=== PATIENT | male | born 1970 | race Caucasian/White ===

== ENCOUNTER 2023-02-17 11:32 | Emergency (ER) | payer MEDICAID ==
[~2023-02-17] VITALS: Ht 180.3 cm; Wt 90.9 kg
[2023-02-17] MEDS ORDERED: magnesium 4gm in 100ml NS 100 ML IV ONE (12:00)
[2023-02-17] MEDS ORDERED: metoclopramide 5 mg/ml inj IV ONE (12:00)
[2023-02-17 12:03] LABS: BASOPHILS # (AUTO) 0.1 X10'3 (0-0.2); BASOPHILS % (AUTO) 1.3 % (0-1); EOSINOPHILS # (AUTO) 0.1 X10'3 (0-0.9); EOSINOPHILS % (AUTO) 1.6 % (0-6); HEMOGLOBIN 12.1 g/dl (14.0-17.9); LYMPHOCYTES # (AUTO) 1.7 X10'3 (1.1-4.8); LYMPHOCYTES % (AUTO) 39.4 % (21-51); MEAN CORPUSCULAR HEMOGLOBIN 30.3 PG (27.0-31.0); MEAN CORPUSCULAR HGB CONC 32.8 g/dL (33.0-36.5); MEAN CORPUSCULAR VOLUME 92.6 FL (78-98); MEAN PLATELET VOLUME 7.7 FL (7.4-10.4); MONOCYTES # (AUTO) 0.8 X10'3 (0-0.9); MONOCYTES % (AUTO) 18.1 % (2-12); NEUTROPHILS # (AUTO) 1.7 X10'3 (1.8-7.7); NEUTROPHILS % (AUTO) 39.6 % (42-75); PLATELET COUNT 154 X10'3 (140-440); RED CELL DISTRIBUTION WIDTH 19.4 % (11.5-14.5); WHITE BLOOD COUNT 4.4 X10'3 (4.5-11.0)
[2023-02-17] MEDS ORDERED: normal saline 1000ml 1,000 ML IV ONE ×2 (12:10→15:00)
[2023-02-17] MEDS ORDERED: thiamine 100mg/ml 2ml inj. IV ONE (12:15)
[2023-02-17 12:18] LABS: ALANINE AMINOTRANSFERASE 92 U/L (12-78); ALBUMIN 3.4 G/DL (3.4-5.0); ALBUMIN/GLOBULIN RATIO 0.7 (1.1-1.5); ALKALINE PHOSPHATASE 153 IU/L (46-116); ANION GAP 14 (8-16); ASPARTATE AMINO TRANSFERASE 74 U/L (10-37); BILIRUBIN,TOTAL 0.3 MG/DL (0.1-1.0); BLOOD UREA NITROGEN 11 MG/DL (7-18); BUN/CREATININE RATIO 11.2 (10.0-20.0); CALCIUM 8.1 MG/DL (8.5-10.1); CHLORIDE 101 MMOL/L (99-107); CREATININE 0.98 MG/DL (0.60-1.10); GLUCOSE 108 MG/DL (70-104); SODIUM 137 MMOL/L (135-145); TOTAL CARBON DIOXIDE 21.7 MMOL/L (24-32); TOTAL PROTEIN 8.4 G/DL (6.4-8.2); eGFR 81 ML/MIN
[2023-02-17 12:24] LABS: ETHANOL 0.547 GM/DL (0.0-0.010); POTASSIUM 4.7 MMOL/L (3.5-5.1)
[2023-02-17 19:41] LABS: CLARITY,URINE CLEAR (Clear); COLOR,URINE YELLOW (Yellow); GLUCOSE, URINE NEGATIVE (Neg); KETONES,URINE NEGATIVE (Neg); LEUKOCYTE ESTERASE ,URINE NEGATIVE (Neg); NITRITES, URINE NEGATIVE (Neg); OCCULT BLOOD,URINE NEGATIVE (Neg); PH,URINE 5.5 (4.8-8.0); PROTEIN,URINE NEGATIVE (Neg); UROBILINOGEN,URINE 0.2 E.U/dL (0.2-1.0)
[2023-02-17 19:44] LABS: URINE AMPHETAMINE SCREEN NEGATIVE (Neg); URINE BARBITUATE SCREEN NEGATIVE (Neg); URINE BENZODIAZEPINES SCREEN NEGATIVE (Neg); URINE CANNABINOID SCREEN NEGATIVE (Neg); URINE COCAINE SCREEN NEGATIVE (Neg); URINE METHADONE SCREEN NEGATIVE (Neg); URINE OPIATE SCREEN NEGATIVE (Neg); URINE PHENCYCLIDINE SCREEN NEGATIVE (Neg)
[2023-02-17 19:47] LABS: UA COLLECTION TYPE CLN CATCH MIDSTREAM
--- NOTE | 2023-02-17 21:14 | NUR ---
PCT attempted to gait test pt. Pt was too unsteady on his feet to walk. MD notified.
[2023-02-18 06:51] VITALS: BP 139/88
== END 2023-02-18 06:58 | disposition home or self-care (01) ==
LOC: EDBD 11:33 → ER 11:33
DX: F10.129 Alcohol abuse with intoxication, unspecified (principal); Z72.89 Other problems related to lifestyle; Z59.00 Homelessness unspecified; Y90.8 Blood alcohol level of 240 mg/100 ml or more
CPT/HCPCS: 36415; 80053; 80305; 80320; 81003; 85025; 96361; 96365; 96366; 96375; 99285; J2765; J3411; J3475; J7030